=== PATIENT | male | born 1990 | race Caucasian/White ===

== ENCOUNTER 2018-05-23 06:15 | Emergency (ER) | payer SELFPAY ==
[~2018-05-23] VITALS: Ht 170.2 cm; Wt 68.0 kg
--- NOTE | 2018-05-23 07:01 | NUR ---
Patient discharged to [employer] custody (Officer Ed #[id number]) in stable conditon. Written and verbal after care instructions given. Patient verbalizes understanding of instructions. Patient left with all personal belongings.
[2018-05-23 07:04] VITALS: BP 122/82
== END 2018-05-23 07:05 ==
LOC: ER 06:18
DX: Z00.00 Encounter for general adult medical examination without abnormal findings (principal)
CPT/HCPCS: A4663